=== PATIENT | male | born 1980 | race Caucasian/White ===

== ENCOUNTER 2017-06-10 19:51 | Emergency (ER) | payer OTHER ==
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
[2017-06-10 20:20] LABS: CHLORIDE,CL 106 mmol/L (101-111); SODIUM,NA 141 mmol/L (135-145)
== END 2017-06-10 21:26 | disposition home or self-care (01) ==
LOC: DL.ED 19:51
DX: S82.62XA Displaced fracture of lateral malleolus of left fibula, initial encounter for closed fracture (principal); V20.4XXA Motorcycle driver injured in collision with pedestrian or animal in traffic accident, initial encounter
CPT/HCPCS: 36415; 73590-LT; 73610-LT; 80053; 85025; 99285